=== PATIENT | female | born 1950 | race African-American/Black ===

== ENCOUNTER 2021-07-02 18:12 | Emergency (ER) | payer OTHER ==
[~2021-07-02] VITALS: Ht 167.6 cm; Wt 81.7 kg
[2021-07-02] MEDS ORDERED: PERCOCET 5-3251 EACH PO (20:17)
[2021-07-02 20:25] VITALS: BP 165/74
== END 2021-07-02 20:25 | disposition home or self-care (01) ==
LOC: ER 18:12
DX: M25.461 Effusion, right knee (principal); M25.512 Pain in left shoulder; W10.9XXA Fall (on) (from) unspecified stairs and steps, initial encounter; Y93.89 Activity, other specified; Y92.89 Other specified places as the place of occurrence of the external cause; Y99.8 Other external cause status